=== PATIENT | female | born 1970 | race Two or more races ===

== ENCOUNTER 2016-03-19 01:10 | Emergency (ER) | payer MEDICAID ==
[~2016-03-19] VITALS: Ht 167.6 cm; Wt 55.8 kg
[2016-03-19 01:23] VITALS: BP 125/88
[2016-03-23] MEDS ORDERED: FLUTICASONE/SALMETEROL 1 DISK IH ONE (01:27)
== END 2016-03-19 03:03 | disposition home or self-care (01) ==
LOC: ER 01:12
DX: J06.9 Acute upper respiratory infection, unspecified (principal); I48.91 Unspecified atrial fibrillation
CPT/HCPCS: A4606; Z7502; Z7610